=== PATIENT | female | born 1955 | race Caucasian/White ===

== ENCOUNTER 2017-01-26 10:30 | Outpatient (CLI) | payer OTHER | END 2017-01-26 10:32 | LOC: LAB 10:30 | PROVIDERS: ATTEND Physician Assistant | DX: L02.31 Cutaneous abscess of buttock (principal) | CPT/HCPCS: 87070 ==

== ENCOUNTER 2018-10-11 13:50 | Outpatient (CLI) | payer OTHER | END 2018-10-11 14:30 | LOC: LABRHC 13:50 | PROVIDERS: ATTEND Physician Assistant | DX: R30.0 Dysuria (principal) | CPT/HCPCS: 87086; 87186 ==

== ENCOUNTER 2019-02-09 11:34 | Outpatient (CLI) | payer OTHER ==
[2019-02-09 11:49] LABS: EOSINOPHILS % 2.6 % (0.0-6.8); MEAN CORPUSCULAR HEMOGLOBIN 29.2 pg (28.0-34.0); MONOCYTES % 4.8 % (0.0-11.0); NEUTROPHILS # 4.9 # k/uL (1.4-7.7)
[2019-02-09 12:21] LABS: eGFR (Non-African) > 60
--- NOTE | 2019-02-10 06:51 | Diagnostic Imaging Report ---
JEOVANNY ANDERSON [facility] [id number] [facility].[address] [id number] Report Submission Date: Feb 09, 2019 1:13:10 PM CDT Patient Study Name: REYNALDO ELLIS Date: Feb 09, 2019 11:51:12 AM CDT Modality Type: US Gender: F Description: US EXTREMITY VEINS UNILAT : 53 Institution: [facility] Physician: JEOVANNY ANDERSON Exam: left lower extremity venous Doppler study. History: left ankle pain Spectral Doppler analysis demonstrates spontaneous and augmentable venous flow. Color Doppler imaging reveals no thrombus formation. The venous structures are compressible. Impression: No sonographic evidence of deep vein thrombosis. Electronically signed on Feb 09, 2019 1:13:10 PM CDT by: Robbin PALOMARES
== END 2019-02-09 11:35 ==
LOC: RAD 11:34
PROVIDERS: ATTEND Family Medicine
DX: M79.89 Other specified soft tissue disorders (principal)
CPT/HCPCS: 36415; 80053; 85025; 93971

== ENCOUNTER 2019-10-05 15:19 | Outpatient (CLI) | payer OTHER | END 2019-10-05 15:24 | LOC: LABRHC 15:19 | PROVIDERS: ATTEND Family Medicine | DX: R30.0 Dysuria (principal) | CPT/HCPCS: 87086 ==